=== PATIENT | female | born 1980 | race African-American/Black ===

== ENCOUNTER 2017-06-04 19:28 | Emergency (ER) | payer MEDICAID ==
[~2017-06-04] VITALS: Ht 172.7 cm; Wt 84.4 kg
[~2017-06-04 19:28] MED LIST: CEPHALEXIN500 MG ORAL; HYDROCODON-ACE1 EA15 ORAL; IBUPROFEN800 MG ORAL; MOBIC15 MG ORAL; NKM; NORCO 5-325 TA1 EACH ORAL; OMEPRAZOLE40 M1 ORAL; PROTONIX40 MG ORAL; RANITIDINE HCL150 MG ORAL; VALIUM5 MG ORAL; ZOFRAN4 MG ORAL
[2017-06-04] MEDS ORDERED: NKM (19:48)
[2017-06-04] MEDS ORDERED: Mylanta II UD 30ml ORAL ONE (20:15)
[2017-06-04] MEDS ORDERED: Lidocaine 2% Visc 15ml soln ORAL ONE (20:15)
--- NOTE | 2017-06-04 20:56 | Emergency Room Report ---
History of Present Illness General Chief Complaint: Abdominal Pain Source: Patient Present Illness HPI 37-year-old female presents emergency department complaining of 5/10 in severity burning epigastric pain intermittently x3 weeks. Patient states that pain is worse upon wakening in the morning. pt. reports halitosis. Patient states she has a history of stomach ulcers and H. pylori several years ago. Patient denies taking antacid medications. Patient denies nausea, vomiting, fevers, chills. She denies blood in the stools or black tarry stools. Patient denies and states that she just started her cycle. Pt. states she has been under a lot of stress taking care of her grandmother, and believes this has exacerbated her symptoms. Denies SOB, cough, CP, Palpitations, LOC, AMS, dizziness, Changes in Vision, Sensation, paresthesias, or a sudden severe headache. Allergies: Coded Allergies: No Known Allergies (Unverified , 06/12/13) Patient History Past Medical History: see triage record Past Surgical History: none Pertinent Family History: none Last Menstrual Period: 05/30/17 Now: No : 5 Para: 3 Reviewed Nursing Documentation: PMH: Agreed, PSxH: Agreed Nursing Documentation-PMH Hx Hypertension: Yes Hx Gastrointestinal Problems: Yes - Ulcer Review of Systems All Other Systems: negative except mentioned in HPI Physical Exam Vital Signs Date Time Temp Pulse Resp B/P Pulse Ox O2 Delivery O2 Flow Rate FiO2 06/04/17 19:44 98.1 74 15 157/98 100 Room Air Sp02 EP Interpretation: reviewed, normal General Appearance: no apparent distress, alert, GCS 15, non-toxic Head: normocephalic, atraumatic Eyes: bilateral eye PERRL, bilateral eye normal inspection ENT: hearing grossly normal, normal voice Neck: full range of motion Respiratory: lungs clear, normal breath sounds, speaking full sentences Cardiovascular #1: regular rate, rhythm Gastrointestinal: normal bowel sounds, non tender, soft, non-distended, no guarding, no rebound Rectal: deferred Musculoskeletal: back normal, gait/station normal, normal range of motion, non- tender Neurologic: alert, oriented x3, responsive, motor strength/tone normal, sensory intact, speech normal Psychiatric: judgement/insight normal, memory normal, mood/affect normal Skin: normal color, no rash, warm/dry, well hydrated Lymphatic: no adenopathy Medical Decision Making PA Attestation Dr. House is my supervising Physician whom patient management has been discussed with. Diagnostic Impression: Primary Impression: Acute gastritis ER Course 37-year-old female presents emergency department complaining of 5/10 in severity burning epigastric pain intermittently x3 weeks. Patient states that pain is worse upon wakening in the morning. pt. reports halitosis. Patient states she has a history of stomach ulcers and H. pylori several years ago. Patient denies taking antacid medications. Patient denies nausea, vomiting, fevers, chills. She denies blood in the stools or black tarry stools. Patient denies and states that she just started her cycle. Pt. states she has been under a lot of stress taking care of her grandmother, and believes this has exacerbated her symptoms. Denies SOB, cough, CP, Palpitations, LOC, AMS, dizziness, Changes in Vision, Sensation, paresthesias, or a sudden severe headache. Ddx considered but are not limited to GE, colitis, acute appy, SBO, * Vital signs: pt. is afebrile, H&PE are most consistent with gastritis and reflux ORDERS: -UA: unremarkable other than tntc rbc's consistent with menstruation -Urine Hcg:negative ED INTERVENTIONS: Gi Cocktail PO - Pt. states her symptoms have subsided with Gi cocktail. DISCHARGE: At this time pt. is stable for d/c to home. Will provide printed patient care instructions, and any necessary prescriptions. Care plan and follow up instructions have been discussed with the patient prior to discharge. Labs Test 06/04/17 20:14 Urine Color Yellow Urine Appearance Slightly cloudy Urine pH 5 (4.5-8.0) Urine Specific [place] 1.025 (1.005-1.035) Urine Protein 2+ (NEGATIVE) Urine Glucose (UA) Negative (NEGATIVE) Urine Ketones 1+ (NEGATIVE) Urine Occult Blood 5+ (NEGATIVE) Urine Nitrite Negative (NEGATIVE) Urine Bilirubin Negative (NEGATIVE) Urine Urobilinogen 1 MG/DL (0.0-1.0) Urine Leukocyte Esterase 1+ (NEGATIVE) Urine RBC Tntc /HPF (0 - 2) Urine WBC 0-2 /HPF (0 - 2) Urine Squamous Epithelial Cells Occasional /LPF Urine Bacteria Few /HPF (NONE) Urine HCG, Qualitative Negative Last Vital Signs Date Time Temp Pulse Resp B/P Pulse Ox O2 Delivery O2 Flow Rate FiO2 06/04/17 19:44 98.1 74 15 157/98 100 Room Air Disposition: HOME, SELF-CARE Condition: Stable Scripts Sucralfate* (CARAFATE*) 1 Gm Tablet 1 GM ORAL FOUR TIMES A DAY for 7 Days, TAB Prov: Trsih Linares 06/04/17 Ranitidine Hcl* (ZANTAC*) 150 Mg Tablet 150 MG ORAL TWICE A DAY, #30 TAB Prov: Trish Linares 06/04/17 Patient Instructions: Food Choices for Gastroesophageal Reflux Disease, Adult, Gastritis, Adult Additional Instructions: Take medications as directed. Follow up with a Primary Care Provider in 3-5 days, even if your symptoms have resolved. --Please review list of primary care clinics, if you do not already have a primary care provider Return sooner to ED if new symptoms occur, or current symptoms become worse. - Please note that this Emergency Department Report was dictated using [email or web address] body repair supervisor technology software, occasionally this can lead to erroneous entry secondary to interpretation by the dictation equipment. Trish Linares Jun 04, 2017 20:56
[2017-06-04 20:58] LABS: APPEARANCE,URINE SLIGHTLY CLOUDY; KETONES,URINE 1+ (NEGATIVE); LEUKOCYTE ESTERASE ,URINE 1+ (NEGATIVE); NITRITE,URINE NEGATIVE (NEGATIVE); PH,URINE 5 (4.5-8.0); PROTEIN,URINE 2+ (NEGATIVE); UROBILINOGEN,URINE 1 MG/DL (0.0-1.0)
[2017-06-04 21:08] LABS: RBC,URINE TNTC /HPF (0 - 2); SQUAMOUS EPITHELIAL CELL,UR OCCASIONAL /LPF (NONE/OCC); WBC,URINE 0-2 /HPF (0 - 2)
[2017-06-04 21:09] LABS: BACTERIA,URINE FEW /HPF
[2017-06-04] MEDS ORDERED: CARAFATE1 G1 ORAL (21:09)
[2017-06-04] MEDS ORDERED: ZANTAC150 MG ORAL (21:09)
[2017-06-04 21:35] VITALS: BP 157/98
== END 2017-06-04 21:33 | disposition home or self-care (01) ==
LOC: EMR 20:03
DX: K29.00 Acute gastritis without bleeding (principal); I10 Essential (primary) hypertension
CPT/HCPCS: 81003; 81025; 99284

== ENCOUNTER 2017-10-15 11:48 | Emergency (ER) | payer MEDICAID ==
[~2017-10-15] VITALS: Ht 172.7 cm; Wt 89.8 kg
[~2017-10-15 11:48] MED LIST changes: +CARAFATE1 G1 ORAL; +ZANTAC150 MG ORAL
[2017-10-15 11:53] VITALS: BP 149/108
[2017-10-15] MEDS ORDERED: ROBAXIN-750750 MG PO (12:49)
[2017-10-15] MEDS ORDERED: IBUPROFEN600 MG ORAL (12:49)
[2017-10-15 12:52] VITALS: BP 149/108
[2017-10-15] MEDS ORDERED: TYLENOL EXTRA500 MG ORAL (13:01)
--- NOTE | 2017-10-15 23:14 | Emergency Room Report ---
History of Present Illness General Chief Complaint: Chest Pain Source: Patient Present Illness HPI The patient is a 37-year-old female presenting for left-sided chest pain for the past 3 days. Pain is intermittent and worse with movement. Described as 7/ 10 sharp sensation. Does not radiate. She does admit to increased physical activity recently as she is moving her furniture at home. She denies any medical history. She denies any other symptoms including N, V, F, chills, SOB, MURARY Allergies: Coded Allergies: No Known Allergies (Unverified , 06/12/13) Patient History Past Medical History: see triage record Pertinent Family History: none Last Menstrual Period: 10/12/17 Now: No - IUD : 5 Para: 3 Reviewed Nursing Documentation: PMH: Agreed, PSxH: Agreed Nursing Documentation-PMH Hx Hypertension: Yes Hx Gastrointestinal Problems: Yes - Gastric ulcer Review of Systems All Other Systems: negative except mentioned in HPI Physical Exam Vital Signs Date Time Temp Pulse Resp B/P (MAP) Pulse Ox O2 Delivery O2 Flow Rate FiO2 10/15/17 11:53 75 19 Room Air 10/15/17 11:53 97.7 149/108 100 Sp02 EP Interpretation: reviewed, normal General Appearance: no apparent distress, alert, GCS 15, non-toxic Head: normocephalic, atraumatic Eyes: bilateral eye normal inspection, bilateral eye PERRL ENT: hearing grossly normal, normal pharynx, no angioedema, normal voice Neck: full range of motion, supple/symm/no masses Respiratory: lungs clear, normal breath sounds, speaking full sentences Cardiovascular #1: regular rate, rhythm, no edema Gastrointestinal: normal bowel sounds, non tender, soft, non-distended, no guarding, no rebound Genitourinary: normal inspection, no CVA tenderness Musculoskeletal: back normal, gait/station normal, normal range of motion, tender - L chest Neurologic: alert, oriented x3, responsive, motor strength/tone normal, sensory intact, speech normal Skin: normal color, no rash, warm/dry, well hydrated Medical Decision Making PA Attestation Dr. Barnes is my supervising physician. Patient management was discussed with my supervising physician Diagnostic Impression: Primary Impression: Muscle strain ER Course The patient is a 37-year-old female presenting for left-sided chest pain for the past 3 days after moving furniture Differential diagnosis include but not limited to muscle strain, ACS, PE, gastritis PE: NAD RRR Lungs CTA bilat TTP over L chest. EKG shows no acute changes She'll be discharged home with prescription for tylenol and muscle relaxer. ER precautions are given EKG Diagnostic Results EP Interpretation: NSR Rate: normal - 64 Rhythm: NSR ST Segments: no acute changes ASA given to the pt in ED: No PA Scribe Text EKG was reviewed and read with my supervising physician. No acute ST segment changes are seen. Normal rate and rhythm. No acute changes. Last Vital Signs Date Time Temp Pulse Resp B/P (MAP) Pulse Ox O2 Delivery O2 Flow Rate FiO2 10/15/17 12:52 97.7 75 19 149/108 100 Room Air Status: improved Disposition: HOME, SELF-CARE Condition: Improved Scripts Acetaminophen* (TYLENOL EXTRA STRENGTH*) 500 Mg Tablet 500 MG ORAL Q8H Y for Prn Headache/Temp > 101, #30 TAB 0 Refills Prov: INDIO CREWS 10/15/17 Methocarbamol* (ROBAXIN-750*) 750 Mg Tablet 750 MG PO TID, #21 TAB 0 Refills Prov: INDIO CREWS.A. 10/15/17 Patient Instructions: Nonspecific Chest Pain, Muscle Strain Additional Instructions: I discussed my findings with the patient. All questions and concerns have been answered. Treatment and medication compliance have been addressed. I advised the patient that they need to follow up with PMD in 3-5 days. Return to ED if symptoms worsen, new symptoms arise, or if needed for any reason. Patient verbalized understanding of discharge instructions. INDIO CREWS Oct 15, 2017 23:14
--- NOTE | 2017-10-28 00:22 | Cardiology Report ---
APPROVED REPORT EKG Measurement Heart [id number] Normal sinus rhythm Normal ECG
== END 2017-10-15 13:05 | disposition home or self-care (01) ==
LOC: EMR 12:13
DX: S29.011A Strain of muscle and tendon of front wall of thorax, initial encounter (principal); X58.XXXA Exposure to other specified factors, initial encounter; Y92.9 Unspecified place or not applicable; I10 Essential (primary) hypertension; Z87.19 Personal history of other diseases of the digestive system
CPT/HCPCS: 93005; 99283

== ENCOUNTER 2017-11-26 14:03 | Emergency (ER) | payer MEDICAID ==
[~2017-11-26] VITALS: Ht 172.7 cm; Wt 88.5 kg
[~2017-11-26 14:03] MED LIST changes: +IBUPROFEN600 MG ORAL; +ROBAXIN-750750 MG PO; +TYLENOL EXTRA500 MG ORAL
--- NOTE | 2017-11-26 14:13 | Emergency Room Report ---
History of Present Illness General Chief Complaint: Flu Like Symptoms Present Illness HPI 37YOF patient presents with "flu-like symptoms" however denies myalgias, fever/ chills Symptoms more like URI symptoms including rhinorrhea, sore throat, cough worse at night + smoking, no asthma history Unknown if sick contacts at home/work Did not take OTC meds No flu vaccine this year Allergies: Coded Allergies: No Known Allergies (Unverified , 06/12/13) Patient History Past Medical History: none Past Surgical History: none Pertinent Family History: none Social History: Reports: smoking Now: No Immunizations: UTD Reviewed Nursing Documentation: PMH: Agreed, PSxH: Agreed Nursing Documentation-PMH Hx Hypertension: Yes Hx Gastrointestinal Problems: Yes - Gastric ulcer Review of Systems All Other Systems: negative except mentioned in HPI Physical Exam Vital Signs Date Time Temp Pulse Resp B/P (MAP) Pulse Ox O2 Delivery O2 Flow Rate FiO2 11/26/17 14:05 98.2 97 20 136/94 96 Room Air Sp02 EP Interpretation: reviewed, normal General Appearance: normal inspection, well appearing, no apparent distress, alert, GCS 15, non-toxic Head: normocephalic, atraumatic Eyes: bilateral eye PERRL, bilateral eye EOMI ENT: normal ENT inspection, hearing grossly normal, normal pharynx, no angioedema, normal voice, TMs + canals normal, uvula midline, moist mucus membranes Neck: normal inspection, full range of motion, supple, thyroid normal, no meningismus, no bony tend Respiratory: normal inspection, lungs clear, normal breath sounds, no rhonchi, no respiratory distress, no retraction, no accessory muscle use, speaking full sentences, wheezing Cardiovascular #1: regular rate, rhythm, no edema, no JVD, normal capillary refill Gastrointestinal: normal inspection, normal bowel sounds, non tender, soft, no mass, no peritonitis, non-distended, no guarding, no hernia, no pulsatile mass Genitourinary: no CVA tenderness Musculoskeletal: normal inspection, back normal, normal range of motion, no calf tenderness, pelvis stable, Brandee's Sign negative Neurologic: normal inspection, alert, oriented x3, responsive, tax map technician III-XII nml as tested, motor strength/tone normal, cerebellar normal, normal gait, speech normal Psychiatric: normal inspection, judgement/insight normal, mood/affect normal, no suicidal/homicidal ideation, no delusions Skin: normal inspection, normal color, no rash Lymphatic: normal inspection, no adenopathy Medical Decision Making Diagnostic Impression: Primary Impression: Bronchitis ER Course VSS, afebrile Mild exp wheezing on exam Symptoms more c/w viral URI/bronchitis Albuterol neb given in ED Advised supportive tx ER course: Patient has remained stable during ED stay. Disposition: Patient is to be discharged to home. Prescriptions given are ventolin, flonase, T#3 Patient is instructed to follow up with their primary care doctor within 5 days. Strict return precautions discussed with patient such as fever, chills, worsening/severe pain, nausea, vomiting, which may indicate severe illness. Patient verbalizes understanding and agrees with plan. Please note that this Emergency Department Report was dictated using [email or web address] high math teacher technology software, occasionally this can lead to erroneous entry secondary to interpretation by the dictation equipment Last Vital Signs Date Time Temp Pulse Resp B/P (MAP) Pulse Ox O2 Delivery O2 Flow Rate FiO2 11/26/17 14:05 98.2 97 20 136/94 96 Room Air Status: improved Disposition: HOME, SELF-CARE Scripts Acetaminophen With Codeine (T#3) (TYLENOL #3 TAB*) Y Tab 1 TAB ORAL QHS Y for For Cough for 7 Days, #20 TAB Prov: JAMIE WAHL M.D. 11/26/17 Albuterol Sulfate (VENTOLIN HFA) 18 Gm Hfa.aer.ad 1 PUFF INH EVERY 6 HOURS for cough, SOB for 7 Days, #18 GM 0 Refills Prov: JAMIE WAHL M.D. 11/26/17 Fluticasone Propionate (Flonase Allergy Relief) 9.9 Ml [place].susp 9.9 ML NS BID for 7 Days, #1 UNIT Prov: JAMIE WAHL M.D. 11/26/17 JAMIE WAHL M.D. Nov 26, 2017 14:13
[2017-11-26] MEDS ORDERED: VENTOLIN HFA18 GM INH (14:21)
[2017-11-26] MEDS ORDERED: FLONASE ALLERG9.9 ML NS (14:21)
[2017-11-26] MEDS ORDERED: ACETAMINOPHEN-1 EAC1 ORAL (14:21)
[2017-11-26] MEDS ORDERED: Albuterol ud Inhalation HHN ONE (14:30)
[2017-11-26 14:44] VITALS: BP 136/94
[2017-11-26 15:10] VITALS: BP 136/94
== END 2017-11-26 15:22 | disposition home or self-care (01) ==
LOC: EMR 15:10
DX: J40 Bronchitis, not specified as acute or chronic (principal); I10 Essential (primary) hypertension; Z87.19 Personal history of other diseases of the digestive system
CPT/HCPCS: 94640; 94664; 99283

== ENCOUNTER 2018-09-15 15:47 | Emergency (ER) | payer MEDICAID ==
[~2018-09-15] VITALS: Ht 172.7 cm; Wt 88.5 kg
[~2018-09-15 15:47] MED LIST changes: +ACETAMINOPHEN-1 EAC1 ORAL; +FLONASE ALLERG9.9 ML NS; +VENTOLIN HFA18 GM INH
[2018-09-15 15:55] VITALS: BP 135/90
[2018-09-15] MEDS ORDERED: ADALAT10 MG ORAL (15:59)
[2018-09-15 16:14] VITALS: BP 135/90
[2018-09-15] MEDS ORDERED: TYLENOL EXTRA500 MG ORAL (16:28)
[2018-09-15] MEDS ORDERED: TESSALON PERLE100 MG ORAL (16:28)
[2018-09-15] MEDS ORDERED: CLARITIN-D 121 EAC1 ORAL (16:28)
--- NOTE | 2018-09-15 16:28 | Emergency Room Report ---
History of Present Illness General Chief Complaint: Upper Respiratory Illness Source: Patient Present Illness HPI 38 yo female patient presents ER complaining of cough and congestion for the past 5 days. Reports been taking NyQuil and Claritin at home for relief symptoms. Reports ear pain and sore throat during this time. Reports coughing up green-yellow sputum. Denies hemoptysis. Denies calf pain. Denies recent travel. Denies vomiting or diarrhea. Denies fever. Denies history of heart attack or stroke. Denies history of asthma. denies shortness of breath. Denies abdominal pain. Denies smoking. Allergies: Coded Allergies: No Known Allergies (Unverified , 06/12/13) Patient History Past Medical History: see triage record Now: No Reviewed Nursing Documentation: PMH: Agreed; PSxH: Agreed Nursing Documentation-PMH Past Medical History: No History, Except For Hx Hypertension: Yes Hx Gastrointestinal Problems: Yes - Gastric ulcer Review of Systems All Other Systems: negative except mentioned in HPI Physical Exam Vital Signs Date Time Temp Pulse Resp B/P (MAP) Pulse Ox O2 Delivery O2 Flow Rate FiO2 09/15/18 15:52 98.2 78 18 135/90 97 Room Air Sp02 EP Interpretation: reviewed, normal General Appearance: well appearing, no apparent distress, alert, GCS 15, non- toxic Head: normocephalic, atraumatic Eyes: bilateral eye normal inspection, bilateral eye PERRL ENT: hearing grossly normal, normal pharynx, no angioedema, normal voice, TMs + canals normal, uvula midline, moist mucus membranes Neck: full range of motion, no bony tend Respiratory: lungs clear, normal breath sounds, no rhonchi, no respiratory distress, no accessory muscle use, no wheezing, speaking full sentences Cardiovascular #1: regular rate, rhythm, no edema Gastrointestinal: non tender, soft, no mass, non-distended, no guarding, no rebound Musculoskeletal: back normal, digits/nails normal, gait/station normal, normal range of motion, non-tender, no calf tenderness, Brandee's Sign negative Neurologic: alert, oriented x3, responsive, motor strength/tone normal, sensory intact Psychiatric: mood/affect normal Skin: no rash Lymphatic: no adenopathy Medical Decision Making PA Attestation Dr. Vitale is my supervising Physician whom patient management has been discussed with. Diagnostic Impression: Primary Impression: Upper respiratory infection ER Course Pt presents to ED c/o cough and congestion. DDX considered but are not limited to influenza, viral URI, pneumonia, strep throat, rhinitis, sinusitis, otitis media, otitis externa. VITAL SIGNS are WNL, patient is afebrile. ER COURSE: provided with cough medication. Lungs clear to auscultation, no wheezes, rhonci or rales. patient afebrile. chest x-ray shows no consolidation, low suspicion for pneumonia, does not require antibiotics at this time. no tonsillar exudates, no pharyngeal erythema, history of cough, no fever, no stridor, uvula midline, low suspicion for peritonsillar abscess. No exudates, no tonsillar swelling or pharyngeal erythema, sore throat likely due to cough. Nonerythematous TMs, no pain with ear pulling, ear canals normal, no otitis media. Likely viral etiology of symptoms. Symptomatic treatment. drink plenty of fluids. Salt water gargles for sore throat. Followup with PCP for further treatment and/or referral as needed. ER precautions given. DISCHARGE: -Rx given for Claritin -Rx given for Tylenol/Acetaminophen -Rx given for Tessalon Perles At this time pt is stable for d/c to home. Patient is resting comfortably, in no acute distress, nontoxic appearing. Patient to take medications as instructed Will provide with patient care instructions and any necessary prescriptions. Care plan and follow-up instructions provided. Patient instructed to follow-up with primary care provider in 3 - 5 days. Patient questions asked and answered. Patient reports understanding and agreement to treatment plan. ER precautions given. Patient instructed to return to ER immediately for any new or worsening of symptoms including but not limited to increasing SOB, persistent fever, intractable vomiting. - Please note that this Emergency Department Report was dictated using [employer] boring machine set up operator technology software, occasionally this can lead to erroneous entry secondary to interpretation by the dictation equipment. Chest X-Ray Diagnostic Results Chest X-Ray Diagnostic Results : Chest X-Ray Ordered: Yes # of Views/Limited/Complete: 1 View Indication: Chest Pain EP Interpretation: Yes PA Xray: Interpretation reviewed, by supervising MD, and agrees with findings. Interpretation: no consolidation, no effusion, no pneumothorax, no acute cardiopulmonary disease Impression: No acute disease JOHNNY ScribJannette Stoddard PA-C Last Vital Signs Date Time Temp Pulse Resp B/P (MAP) Pulse Ox O2 Delivery O2 Flow Rate FiO2 09/15/18 15:52 98.2 78 18 135/90 97 Room Air Disposition: HOME, SELF-CARE Condition: Stable Scripts Benzonatate* (TESSALON PERLE*) 100 Mg Capsule 100 MG ORAL THREE TIMES A DAY, #20 PERLE Prov: Ruben Stoddard 09/15/18 Acetaminophen* (TYLENOL EXTRA STRENGTH*) 500 Mg Tablet 500 MG ORAL Q8H PRN for Prn Headache/Temp > 101, #30 TAB 0 Refills Prov: Ruben Stoddard 09/15/18 Loratadine/Pseudoephedrine (CLARITIN-D 12 HOUR TABLET) 1 Each Tab.er.12h 1 TAB ORAL EVERY 12 HOURS, #24 TAB Prov: Ruben Stoddard 09/15/18 Patient Instructions: Upper Respiratory Infection, Adult Additional Instructions: Followup with primary care provider in 3 -5 days. Take medications as directed. Patient questions asked and answered. ER precautions given, patient instructed to return to ER immediately for any new or worsening of symptoms. Ruben Stoddard Sep 15, 2018 16:28
[2018-09-15] MEDS ORDERED: Benzonatate 100mg Perles ORAL ONE (16:30)
--- NOTE | 2018-09-15 16:46 | Diagnostic Imaging Report ---
Indication: Chest pain Technique: One view of the chest Comparison: 05/10/2009 Findings: Lungs and pleural spaces are clear. Heart size is normal Impression: No acute process
== END 2018-09-15 17:30 | disposition home or self-care (01) ==
LOC: EMR 16:50
DX: J06.9 Acute upper respiratory infection, unspecified (principal); I10 Essential (primary) hypertension
CPT/HCPCS: 71045; 99283

== ENCOUNTER 2019-07-28 03:18 | Emergency (ER) | payer MEDICAID ==
[~2019-07-28] VITALS: Ht 172.7 cm; Wt 84.8 kg
[~2019-07-28 03:18] MED LIST changes: +ADALAT10 MG ORAL; +CLARITIN-D 121 EAC1 ORAL; +TESSALON PERLE100 MG ORAL
--- NOTE | 2019-07-28 03:32 | NUR ---
ED Nurse Note: pt walked in to ED C/O spotting since ealier today. pt states she has light spotting, dark brown in color with cramps in abdomen area. pt states she is 8 weeks . [facility] 06/04/19. pt is alert x4.VSS
--- NOTE | 2019-07-28 03:41 | Emergency Room Report ---
History of Present Illness General Chief Complaint: Complications Source: Patient Present Illness HPI This is a 39-year-old female who is 6 para 3 who is approximately 8 weeks . She presents with chief complaint of vaginal spotting. She had cramping for last 2 days and went up to urinate today and had some spotting. Denies any fever chills but no trauma. Similar symptoms a month ago. She is scheduled for an ultrasound next week. Pain is crampy in nature. 7 out of 10. No radiation. No nausea no vomiting. No hematuria. Allergies: Coded Allergies: No Known Allergies (Unverified , 06/12/13) Patient History Past Medical History: see triage record, old chart reviewed Past Surgical History: other Pertinent Family History: none Last Menstrual Period: Jun [id number] Now: Yes : 6 Para: 3 Immunizations: other Reviewed Nursing Documentation: PMH: Agreed; PSxH: Agreed Nursing Documentation-PMH Hx Hypertension: Yes Hx Gastrointestinal Problems: Yes - Gastric ulcer, gestational diabetes Review of Systems Eye: Denies: eye pain, blurred vision ENT: Denies: ear pain, nose congestion, throat swelling Respiratory: Denies: cough, shortness of breath Cardiovascular: Denies: chest pain, palpitations Gastrointestinal: Denies: abdominal pain, diarrhea, nausea, vomiting Musculoskeletal: Denies: back pain, joint pain Skin: Denies: rash Neurological: Denies: headache, numbness Endocrine: Denies: increased thirst, increased urine Hematologic/Lymphatic: Denies: easy bruising All Other Systems: negative except mentioned in HPI Physical Exam Vital Signs Date Time Temp Pulse Resp B/P (MAP) Pulse Ox O2 Delivery O2 Flow Rate FiO2 07/28/19 03:22 98.1 85 16 137/91 (106) 100 Room Air Vitals normal Sp02 EP Interpretation: reviewed, normal General Appearance: well appearing, no apparent distress, alert Head: normocephalic, atraumatic Eyes: bilateral eye PERRL, bilateral eye EOMI ENT: hearing grossly normal, normal pharynx Neck: full range of motion, supple, no meningismus Respiratory: chest non-tender, lungs clear, normal breath sounds Cardiovascular #1: regular rate, rhythm, no murmur Gastrointestinal: normal bowel sounds, non tender, no mass, no organomegaly, no bruit, non-distended Musculoskeletal: back normal, gait/station normal, normal range of motion Psychiatric: mood/affect normal Medical Decision Making Diagnostic Impression: Primary Impression: Threatened ER Course This patient presents with vaginal spotting and . Ultrasound which show gestational sac with IUP. Unable to see heartbeat since this is transabdominal. No evidence of ectopic or heterotopic . It is unlikely since patient is not on fertility medication. Last Vital Signs Date Time Temp Pulse Resp B/P (MAP) Pulse Ox O2 Delivery O2 Flow Rate FiO2 07/28/19 03:22 98.1 85 16 137/91 (106) 100 Room Air Status: improved Disposition: HOME, SELF-CARE Additional Instructions: Follow-up with your [facility] within a week. Return if symptoms worsen. Pawel Quintero MD Jul 28, 2019 03:41
--- NOTE | 2019-07-28 03:47 | NUR ---
ED Nurse Note: urine and blood sample sent down to lab
[2019-07-28 03:54] LABS: APPEARANCE,URINE CLEAR; BILIRUBIN, URINE NEGATIVE (NEGATIVE); COLOR,URINE PALE YELLOW; GLUCOSE, URINE (UA) NEGATIVE (NEGATIVE); KETONES,URINE NEGATIVE (NEGATIVE); LEUKOCYTE ESTERASE ,URINE NEGATIVE (NEGATIVE); NITRITE,URINE NEGATIVE (NEGATIVE); PH,URINE 6 (4.5-8.0); PROTEIN,URINE NEGATIVE (NEGATIVE); UROBILINOGEN,URINE NORMAL MG/DL (0.0-1.0)
[2019-07-28 04:48] VITALS: BP 126/84
--- NOTE | 2019-07-28 04:48 | NUR ---
ER DISCHARGE NOTE: Patient is cleared to be discharged per ERMD, pt is aox4, on room air, with stable vital signs. pt was given dc instructions, pt was able to verbalize understanding, pt id band and iv site removed without complications. pt is able to ambulate with steady gait. pt took all belongings.
== END 2019-07-28 04:48 | disposition home or self-care (01) ==
LOC: EMR 03:40
DX: O20.0 Threatened abortion (principal); Z3A.08 8 weeks gestation of pregnancy; O10.911 Unspecified pre-existing hypertension complicating pregnancy, first trimester; Z87.11 Personal history of peptic ulcer disease
CPT/HCPCS: 36415; 81003; 84702; 86850; 86900; 86901; Z7502; 99283

== ENCOUNTER 2019-11-30 14:49 | Emergency (ER) | payer MEDICAID ==
[~2019-11-30] VITALS: Ht 172.7 cm; Wt 90.7 kg
[2019-11-30 15:17] VITALS: BP 116/80
--- NOTE | 2019-11-30 15:17 | NUR ---
ED Nurse Note: PT walked in to ED for c/o persistent, painful cough and SOB, wheezing x 3 days. pt denies N/V/D.
[2019-11-30] MEDS: Albuterol/Ipratropium 3ml neb HHN SCH ×2 (15:41→15:42)
--- NOTE | 2019-11-30 16:08 | Emergency Room Report ---
History of Present Illness General Chief Complaint: Flu Like Symptoms Source: Patient Present Illness HPI 39-year-old female with history of heavy tobacco smoker complaining of 4 days of cough and congestion and chest pressure posttussive. Denies chest pain chest pain radiation. Denies headache and dizziness, fever and chills, recent travel. Denies abdominal pain, nausea vomiting, urinary symptoms. Has not taken medication for symptom relief. Denies drug use, vaping, and alcohol intake. Allergies: Coded Allergies: No Known Allergies (Unverified , 06/12/13) Patient History Past Medical History: see triage record Past Surgical History: none Pertinent Family History: none Social History: Reports: smoking Last Menstrual Period: 11/27/19 Now: No Immunizations: UTD Reviewed Nursing Documentation: PMH: Agreed; PSxH: Agreed Nursing Documentation-PMH Past Medical History: No History, Except For Hx Cardiac Problems: No Hx Hypertension: No Hx Pacemaker: No Hx Asthma: No Hx COPD: No Hx Diabetes: No - gestational DM Hx Cancer: No Hx Gastrointestinal Problems: Yes - Gastric ulcer Hx Dialysis: No Hx Neurological Problems: No Hx Cerebrovascular Accident: No Hx Seizures: No Review of Systems All Other Systems: negative except mentioned in HPI Physical Exam Vital Signs Date Time Temp Pulse Resp B/P (MAP) Pulse Ox O2 Delivery O2 Flow Rate FiO2 11/30/19 15:13 97.9 103 16 121/79 (93) 97 Room Air Sp02 EP Interpretation: reviewed, normal General Appearance: no apparent distress, alert, GCS 15, non-toxic Head: normocephalic, atraumatic Eyes: bilateral eye normal inspection, bilateral eye PERRL ENT: normal ENT inspection, hearing grossly normal, EOM grossly intact, normal pharynx, no angioedema, TMs + canals normal, uvula midline Neck: full range of motion, supple, thyroid normal, no meningismus, supple/symm /no masses Respiratory: chest non-tender, no rhonchi, no respiratory distress, no retraction, no accessory muscle use, wheezing - Diffuse wheezing auscultated Cardiovascular #1: regular rate, rhythm, no edema, no murmur Gastrointestinal: non tender, soft, no mass, no organomegaly, no peritonitis, no bruit Rectal: deferred Genitourinary: no CVA tenderness Musculoskeletal: back normal, no calf tenderness Neurologic: alert, motor strength/tone normal, oriented x3, sensory intact, responsive, speech normal Psychiatric: judgement/insight normal, memory normal, mood/affect normal, no suicidal/homicidal ideation Skin: no rash Lymphatic: no adenopathy Medical Decision Making PA Attestation All my diagnosis and treatment plans were reviewed ad discussed with my supervising physician Dr. Barnes Diagnostic Impression: Primary Impression: Pneumonitis ER Course 39-year-old female with history of heavy tobacco smoker complaining of 4 days of cough and congestion and chest pressure posttussive. Denies chest pain chest pain radiation. Denies headache and dizziness, fever and chills, recent travel. Denies abdominal pain, nausea vomiting, urinary symptoms. Has not taken medication for symptom relief. Denies drug use, vaping, and alcohol intake. Ddx considered but are not limited to: bronchitis, PNA, URI viral, bacterial bronchitis, pneumonitis Vital signs: are WNL, pt. is afebrile H&PE are most consistent with: Pneumonitis ORDERS: Chest x-ray, azithromycin, guaifenesin, prednisone, albuterol ED INTERVENTIONS: 3 treatments of albuterol ipratropium nebulizer, prednisone DISCHARGE: At this time pt. is stable for d/c to home. Will provide printed patient care instructions, and any necessary prescriptions. Care plan and follow up instructions have been discussed with the patient prior to discharge. Patient take medication as directed, follow-up with primary care provider, avoid smoking, increase oral hydration, worsening symptoms return to the emergency room. I explained the patient that due to history of tobacco smoke she is more prone to bacterial infections. Chest X-Ray Diagnostic Results Chest X-Ray Diagnostic Results : Chest X-Ray Ordered: Yes # of Views/Limited/Complete: 1 View Indication: Other - Cough PA Xray: Interpretation reviewed, by supervising MD, and agrees with findings. Interpretation: no consolidation, no effusion, no pneumothorax Impression: No acute disease Electronically Signed by: Marko Akins PA-C Last Vital Signs Date Time Temp Pulse Resp B/P (MAP) Pulse Ox O2 Delivery O2 Flow Rate FiO2 11/30/19 15:17 98 16 Room Air 11/30/19 15:17 97.9 116/80 97 Status: improved Disposition: HOME, SELF-CARE Condition: Stable Scripts Prednisone* (PREDNISONE*) 20 Mg Tablet 40 MG ORAL DAILY for 5 Days, #10 TAB Prov: Marko Leon 11/30/19 Albuterol Sulfate (VENTOLIN HFA) 18 Gm Hfa.aer.ad 2 PUFFS INH EVERY 6 HOURS, #18 GM 0 Refills Prov: Marko Leon 11/30/19 Guaifenesin* (GUAIFENESIN*) 100 Mg/5 Ml Liquid 5 ML ORAL Q6H, #120 ML 0 Refills Prov: Marko Leon 11/30/19 Azithromycin* (ZITHROMAX*) 250 Mg Tablet 250 MG ORAL DAILY, #6 TAB 0 Refills Take two tables once daily for 1 day, then one tablet once daily for 4 days. Prov: Marko Leon 11/30/19 Patient Instructions: Pneumonitis Additional Instructions: Take medication as directed, avoid smoking, increase oral hydration, follow-up with your primary care provider, if worsening symptoms return to the emergency room Marko Leon Nov 30, 2019 16:08
[2019-11-30] MEDS ORDERED: GUAIFENESI100 MG/5 M ORAL (16:10)
[2019-11-30] MEDS ORDERED: VENTOLIN HFA18 GM INH (16:10)
[2019-11-30] MEDS ORDERED: PREDNISONE20 MG ORAL (16:10)
[2019-11-30] MEDS ORDERED: ZITHROMAX250 MG ORAL (16:10)
--- NOTE | 2019-11-30 16:22 | NUR ---
ED Nurse Note: Patient is being discharged from medical care. D/C instruction and prescription given to patient. Patient reports feeling better with breathing after treatment. Regular, unlabored breathing noted. All questions were answered. Patient ambulating out with steady gait.
--- NOTE | 2019-11-30 16:54 | Diagnostic Imaging Report ---
Indication: Cough Technique: One view of the chest Comparison: 09/15/2018 Findings: Lungs and pleural spaces are clear. Heart size is normal. Inspiration is suboptimal. No interval change Impression: No acute process
== END 2019-11-30 16:22 | disposition home or self-care (01) ==
LOC: EMR 16:09
DX: J18.9 Pneumonia, unspecified organism (principal); F17.200 Nicotine dependence, unspecified, uncomplicated
CPT/HCPCS: 71045; J7512; Z7502; 99284; J7620

== ENCOUNTER 2020-01-06 11:36 | Emergency (ER) | payer MEDICAID ==
[~2020-01-06] VITALS: Ht 172.7 cm; Wt 92.5 kg
[~2020-01-06 11:36] MED LIST changes: +GUAIFENESI100 MG/5 M ORAL; +PREDNISONE20 MG ORAL; +ZITHROMAX250 MG ORAL
[2020-01-06 11:48] VITALS: BP 164/98
[2020-01-06] MEDS ORDERED: GUAIFENESIN DM118 M1 ORAL (12:09)
[2020-01-06] MEDS ORDERED: ZYRTEC10 MG ORAL (12:09)
[2020-01-06] MEDS ORDERED: ALBUTEROL SULF8.5 GM INH (12:09)
--- NOTE | 2020-01-06 12:09 | Emergency Room Report ---
History of Present Illness General Chief Complaint: Flu Like Symptoms Source: Patient Present Illness HPI 39-year-old female presents with cough, congestion, no fevers no chills, she endorses some mild shortness of breath and chest tightness with wheezing alleviated with albuterol no aggravating factors severity is mild, constant has been ongoing for few days was seen recently and took antibiotics which helped and now she has diarrhea patient presents for evaluation COVID-19 risk:Contact w/high r: No COVID-19 risk:Travel to affect: No Has patient experienced yadav: Yes Coronavirus symptoms experienc: Cough, Runny Nose Allergies: Coded Allergies: No Known Allergies (Unverified , 06/12/13) Patient History Past Medical History: see triage record Reviewed Nursing Documentation: PMH: Agreed; PSxH: Agreed Nursing Documentation-PMH Hx Cardiac Problems: No Hx Hypertension: No Hx Pacemaker: No Hx Asthma: No Hx COPD: No Hx Diabetes: No - gestational DM Hx Cancer: No Hx Gastrointestinal Problems: Yes - Gastric ulcer Hx Dialysis: No Hx Neurological Problems: No Hx Cerebrovascular Accident: No Hx Seizures: No Review of Systems All Other Systems: negative except mentioned in HPI Physical Exam Vital Signs Date Time Temp Pulse Resp B/P (MAP) Pulse Ox O2 Delivery O2 Flow Rate FiO2 01/06/20 11:48 97.2 99 18 164/98 95 Room Air Sp02 EP Interpretation: reviewed, normal General Appearance: well appearing, no apparent distress, alert Head: normocephalic, atraumatic Eyes: bilateral eye PERRL, bilateral eye EOMI ENT: uvula midline, moist mucus membranes, nasal congestion Neck: supple, thyroid normal, supple/symm/no masses Respiratory: lungs clear, no respiratory distress, no retraction, no accessory muscle use Cardiovascular #1: normal peripheral pulses, regular rate, rhythm, no edema, no gallop, no murmur Gastrointestinal: non tender, soft, no guarding, no rebound Musculoskeletal: normal inspection Neurologic: alert, oriented x3 Psychiatric: mood/affect normal Skin: no rash, warm/dry Medical Decision Making Diagnostic Impression: Primary Impression: Upper respiratory infection Qualified Codes: J06.9 - Acute upper respiratory infection, unspecified ER Course 39-year-old female presents most likely with a viral upper respiratory infection will provide patient with cetirizine as well as guaifenesin for mucus clearing and then provide patient with albuterol Last Vital Signs Date Time Temp Pulse Resp B/P (MAP) Pulse Ox O2 Delivery O2 Flow Rate FiO2 01/06/20 11:48 97.2 99 18 164/98 (120) 95 Room Air Disposition: HOME, SELF-CARE Condition: Stable Scripts Cetirizine Hcl* (ZYRTEC*) 10 Mg Tablet 10 MG ORAL DAILY PRN for congestion, #30 TAB 0 Refills Prov: Thom Ascencio MD 01/06/20 Guaifenesin/Dextromethorphan* (Guaifenesin Dm Syrup*) 5 Ml Syrup 10 ML ORAL Q8H PRN for For Cough, #118 ML Prov: Thom Ascencio MD 01/06/20 Albuterol Sulfate* (ALBUTEROL SULFATE MDI*) 8.5 Gm Hfa.aer.ad 2 PUFF INH Q4H PRN for Shortness of Breath, #1 EA 0 Refills Prov: Thom Ascencio MD 01/06/20 Referrals: [facility] Michelet Juan. [facility] Patient Instructions: Upper Respiratory Infection, Adult, [id number] Additional Instructions: The patient was provided with discharge instructions, notified to follow-up with a primary care doctor and or specialist in the next 24-48 hours, and to return to the ED if they have worsening of their symptoms. Please note that this report is being documented using [employer] technology. This can lead to erroneous entry secondary to incorrect interpretation by the dictating instrument. Please self isolate for 14 days until symptoms resolve. Please practice social isolation. Strongly recommend proper hand hygiene. Thom Ascencio MD Jan 06, 2020 12:09
[2020-01-06 12:23] VITALS: BP 158/68
== END 2020-01-06 12:23 | disposition home or self-care (01) ==
LOC: EMR 12:20
DX: J06.9 Acute upper respiratory infection, unspecified (principal)
CPT/HCPCS: 99282